=== PATIENT | male | born 1990 | race African-American/Black ===

== ENCOUNTER 2017-01-28 11:36 | Emergency (ER) | payer OTHER ==
[~2017-01-28] VITALS: Ht 182.9 cm; Wt 129.7 kg
[2017-01-28] MEDS ORDERED: TOPA25TA10 PO (11:49)
[2017-01-28] MEDS ORDERED: HYDR-3716 PO (11:49)
[2017-01-28 14:50] VITALS: BP 162/75
--- NOTE | 2017-01-28 14:51 | REP ---
RIGHT FOOT SERIES COMPLETE: 01/28/2017. Clinical history: Right lateral foot pain after back surgery. Findings: Four views are provided. No prior study. There is no plantar or Achilles insertional spur on the lateral view. Subtalar joints are intact. The talonavicular and calcaneocuboid joints are normal. Tarsal articulations are preserved. The first TMP joint through the fifth were unremarkable. Metatarsals and phalanges without fracture or focal lesion. There is some minor degenerative change and spurring at the joint margins of the first MTP joint. No destructive lesion or erosive change. Impression: 1. Minimal degenerative change first MTP joint, otherwise negative right foot series. Signed by Jere Jha MD 01/28/2017 07:34 P
== END 2017-01-28 14:51 | disposition home or self-care (01) ==
LOC: M ED 13:02
DX: R10.30 Lower abdominal pain, unspecified (principal); M79.671 Pain in right foot; M19.071 Primary osteoarthritis, right ankle and foot; Z98.890 Other specified postprocedural states; Q07.00 Arnold-Chiari syndrome without spina bifida or hydrocephalus; G43.909 Migraine, unspecified, not intractable, without status migrainosus

== ENCOUNTER → 2018-08-15 | Outpatient (REF) | LOC: M SMT 09:47 | DX: Z02.71 Encounter for disability determination (principal) ==

== ENCOUNTER 2018-12-24 12:51 | Emergency (ER) | payer OTHER ==
[~2018-12-24] VITALS: Ht 185.4 cm; Wt 120.5 kg
[~2018-12-24 12:51] MED LIST: HYDR-3716 PO; TOPA1TAB PO
[2018-12-24] MEDS ORDERED: MORPHINE 4 MG/ML 1ML VIAL/SYRINGE (J2270) As Ordered ONE (14:24)
[2018-12-24] MEDS ORDERED: MORPHINE 10 MG/ML 1ML VIAL (J2270) IM ONE (14:30)
[2018-12-24] MEDS ORDERED: CYCLOBENZAPRINE 10 MG TAB PO ONE (14:30)
[2018-12-24] MEDS ORDERED: predniSONE 20 MG TAB PO ONE (14:30)
[2018-12-24] MEDS ORDERED: PRED10TA2 PO (15:53)
[2018-12-24] MEDS ORDERED: CYCL10TA PO (15:53)
[2018-12-24 16:13] VITALS: BP 130/75
== END 2018-12-24 16:21 | disposition home or self-care (01) ==
LOC: M ED 12:51
DX: G89.29 Other chronic pain (principal); M54.5 Low back pain; X58.XXXA Exposure to other specified factors, initial encounter; Y92.9 Unspecified place or not applicable; Y93.89 Activity, other specified; Y99.9 Unspecified external cause status; Z79.899 Other long term (current) drug therapy
CPT/HCPCS: 96374; 99283; J2270

== ENCOUNTER → 2019-02-25 | Outpatient (REF) ==
[~2019-02-25] MED LIST changes: +CYCL10TA PO; +PRED10TA2 PO
--- NOTE | 2019-02-26 03:14 | REP ---
Clinical: Pain. . Technique: AP, lateral, swimmer's, and open-mouth views. Findings: Alignment and lordosis is maintained. There is no evidence for acute fracture / compression injury or subluxation. No significant degenerative changes are appreciated. Open mouth view demonstrates normal C1-C2 articulation and odontoid process. Impression: Normal cervical spine series. Electronically Signed by Richard Martinez MD 02/26/2019 03:06 A
== END ==
LOC: M SMT 10:29
PROVIDERS: ATTEND Internal Medicine
DX: M51.36 Other intervertebral disc degeneration, lumbar region (principal)